=== PATIENT | female | born 1985 | race Caucasian/White ===

== ENCOUNTER 2016-08-22 03:41 | Inpatient (IN) | payer BC ==
[~2016-08-22 03:41] MED LIST: Lactated Ringers 1,000 ML IV SCH; Lidocaine 1% 50 ML MDV INJECT PRN; Oxytocin/Lactated Ringers 30 UNIT/500 ML BAG IV SCH
[2016-08-22] MEDS ORDERED: Oxytocin/Lactated Ringers 30 UNIT/500 ML BAG ONE (03:48)
[2016-08-22] MEDS ORDERED: Butorphanol 1 MG/ML SDV IVPUSH PRN (03:56)
[2016-08-22] MEDS ORDERED: Nalbuphine 10 MG/1 ML Vial IVPUSH PRN (03:56)
[2016-08-22] MEDS ORDERED: Methylergonovine 0.2 MG/1 ML Amp IM PRN (03:56)
[2016-08-22] MEDS ORDERED: Carboprost Tromethamine 250 MCG/1 ML Amp IM PRN (03:56)
[2016-08-22] MEDS ORDERED: Misoprostol 200 MCG Tab PO PRN (03:56)
[2016-08-22] MEDS ORDERED: Water For Irrigation,Sterile 1,000 ML Container IRR PRN (03:56)
[2016-08-22] MEDS ORDERED: Sodium Chloride 0.9% 2.5 ML Syringe FLUSH PRN (03:56)
[2016-08-22] MEDS ORDERED: Sodium Chloride 0.9% 10 ML Syringe FLUSH PRN (03:56)
[2016-08-22] MEDS ORDERED: Benzocaine/Menthol 20%-0.5% Spray 78 GM Cannister TOP PRN (04:51)
[2016-08-22] MEDS ORDERED: Lanolin 100% Cream 7 GM Tube TOP PRN (04:51)
[2016-08-22] MEDS ORDERED: Bisacodyl 10 MG Supp RECTAL PRN (04:51)
[2016-08-22] MEDS ORDERED: Docusate Sodium 100 MG Cap PO PRN (04:51)
[2016-08-22] MEDS ORDERED: Witch Hazel Medicated Pads 40/Jar TOP PRN (04:51)
[2016-08-22] MEDS ORDERED: oxyCODONE 5 MG Tab PO PRN (04:51)
[2016-08-22] MEDS: Acetaminophen 500 MG Tab PO PRN ×3 (05:59→17:16)
--- NOTE | 2016-08-22 11:39 | OR ---
SURGEON: Kassidy Jones DATE OF PROCEDURE: 08/22/2016 PRE-DELIVERY HISTORY: This is a 31-year-old, G2, P1, presented to Labor and delivery with chief complaint of painful uterine contractions. The patient was quickly assessed by nursing staff secondary to significant pain, moaning, and the patient with complaints of urge to push at the time of arrival on Labor and delivery. The patient was examined and found to be completely dilated and having a bulging bag. The patient was quickly given an IV and table was set for delivery. The patient spontaneously ruptured once being setup for delivery. The patient quickly started maternal expulsive efforts after spontaneous rupture of membranes. PREOPERATIVE DIAGNOSES: 1. Intrauterine at 40 weeks and 1 day. 2. Group B Streptococcus negative. 3. Active labor. POSTOPERATIVE DIAGNOSES: 1. Intrauterine at 40 weeks and 1 day. 2. Group B Streptococcus negative. 3. Active labor. 4. Delivered status. 5. Second-degree perineal laceration. PROCEDURE PERFORMED: 1. Spontaneous-assisted vaginal delivery. 2. Repair of midline second-degree perineal laceration. ANESTHESIA: Local. ESTIMATED BLOOD LOSS: 125 mL. FINDINGS: Viable male in vertex presentation with score of 9 and 9 at 1 and 5 minutes respectively and weight of 3190 g. Midline second-degree perineal laceration. Normal intact placenta with a 3-vessel cord. SPECIMEN REMOVED: Placenta. CONDITION: Postoperatively, the patient and tolerated the procedure well. COMPLICATIONS: None known. DESCRIPTION OF PROCEDURE: This female under no anesthesia, delivered a viable male with score of 9 and 9 at 1 and 5 minutes respectively and weight of 3190 g. Delivery was via spontaneous assisted vaginal delivery with in vertex presentation. Upon delivery of vertex, the neck was checked. There was no nuchal cord to be reduced. With gentle downward traction, the anterior shoulder was delivered followed by the body. The infant was bulb suctioned at delivery and placed directly on mom's abdomen. Cord was doubly clamped and cut and cord blood was collected and sent for analysis. After delivery of the infant, IV Pitocin was given as an uterotonic to prevent excessive maternal blood loss and help expel the placenta. With signs of placental separation, fundal massage was completed along with gentle traction on the umbilical cord, and a normal intact placenta with 3-vessel cord delivered on [facility]. After delivery of infant and placenta, the vagina, perineum, and rectum were explored. The patient had a midline second-degree perineal laceration. The patient's perineal tissue was infiltrated with local anesthetic. After testing, the patient was noted to be well anesthetized. A 3- 0 Vicryl suture was used to repair the second-degree perineal laceration in normal 3-layer fashion. Afterwards, the lower uterine segment and vagina were cleared of all clots and debris. The patient was cleansed, pads were changed. The bed was returned to functioning status. The patient and tolerated the procedure well. was in maternal arms bonding at the end of procedure and actually nursing. MITCHELL / DEANDRE /[id number] TARAN
[2016-08-22] MEDS: Ibuprofen 800 MG Tab PO PRN ×2 (13:40→20:59)
--- NOTE | 2016-08-23 07:34 | PCM.PNPP ---
- General Info Date of Service: 08/23/16 Functional Status: Reports: pain controlled, tolerating diet, ambulating, urinating - Review of Systems General: Denies: fever, weakness, fatigue, chills Pulmonary: Denies: shortness of breath, pleuritic chest pain, cough Cardiovascular: Denies: chest pain, palpitations, dyspnea on exertion, lightheadedness Gastrointestinal: Denies: Abdominal pain Genitourinary: Denies: dysuria, incontinence Neurological: Denies: headache Psychiatric: Denies: confusion, depression, mood lability - General Info Date of Service: 08/23/16 - Patient Data Vital Signs - most recent: Last Vital Signs Temp 36.7 C 08/22/16 20:00 Pulse 66 08/22/16 20:00 Resp 17 08/22/16 20:00 BP 118/57 L 08/22/16 20:00 Pulse Ox 96 08/22/16 20:00 Weight - most recent: 246 lb Lab Results - last 24 hrs: Laboratory Results - last 24 hr 08/23/16 Range/Units 04:34 Hgb 12.1 (12.0-16.0) g/dL Hct 36.0 (36.0-46.0) % Med Orders - Current: Current Medications Acetaminophen (Tylenol Extra Strength) 500 mg PO Q4H PRN PRN Reason: Pain Last Admin: 08/22/16 17:16 Dose: 500 mg Benzocaine/Menthol (Dermoplast Pain Relief 20%-0.5% [place]) 78 gm TOP ASDIRECTED PRN PRN Reason: Perineal Comfort Measure Last Admin: 08/22/16 05:56 Dose: 1 canister Bisacodyl (Dulcolax) 10 mg RECTAL .ONCE PRN PRN Reason: Constipation Butorphanol Tartrate (Stadol) 1 mg IVPUSH Q1H PRN PRN Reason: Pain Carboprost Tromethamine (Hemabate Ds) 250 mcg IM ASDIRECTED PRN PRN Reason: Post Hemorrhage Docusate Sodium (Colace) 100 mg PO BID PRN PRN Reason: Constipation Emollient Ointment (Lansinoh Hpa) 0 gm TOP ASDIRECTED PRN PRN Reason: Sore Nipples Last Admin: 08/22/16 05:57 Dose: 1 applic Lactated Ringer's (Ringers, Lactated) 1,000 mls @ 150 mls/hr IV ASDIRECTED VINNIE Ibuprofen (Motrin) 800 mg PO Q6H PRN PRN Reason: Pain Last Admin: 08/22/16 20:59 Dose: 800 mg Lidocaine HCl (Xylocaine 1%) 50 ml INJECT .ONCE PRN PRN Reason: Laceration repair Last Admin: 08/22/16 04:14 Dose: 50 ml Methylergonovine Maleate (Methergine) 0.2 mg IM ASDIRECTED PRN PRN Reason: Post Hemorrhage Misoprostol (Cytotec) 200 mcg PO .ONCE PRN PRN Reason: Post Hemorrhage Oxycodone HCl (Oxycodone) 5 mg PO Q2H PRN PRN Reason: Pain Sodium Chloride (Saline Flush) 10 ml FLUSH ASDIRECTED PRN PRN Reason: Keep Vein Open Sodium Chloride (Saline Flush) 2.5 ml FLUSH ASDIRECTED PRN PRN Reason: Keep Vein Open Sterile Water (Sterile Water For Irrigation) 1,000 ml IRR ASDIRECTED PRN PRN Reason: delivery Last Admin: 08/22/16 04:14 Dose: 1,000 ml Witch Tonya (Tucks) 1 pad TOP ASDIRECTED PRN PRN Reason: comfort care Last Admin: 08/22/16 05:57 Dose: 1 applic Discontinued Medications Oxytocin/Lactated Ringer's (Pitocin In Lr 30 Units/500 Ml) Confirm Administered Dose 30 unit in 500 mls @ as directed .ROUTE .STK-MED ONE Stop: 08/22/16 03:49 Last Admin: 08/22/16 13:54 Dose: Not Given Oxytocin/Lactated Ringer's (Pitocin In Lr 30 Units/500 Ml) 30 unit in 500 mls @ 500 mls/hr IV TITRATE VINNIE PRN Reason: 500 MUNITS/MIN Stop: 08/22/16 04:39 Last Admin: 08/22/16 03:49 Dose: 500 munits/min, 500 mls/hr Nalbuphine HCl (Nubain) 10 mg IVPUSH Q1H PRN PRN Reason: Pain (severe 7-10) Stop: 08/22/16 05:57 - Interaction Infant Disposition, : in Room with Family Interaction: Holding Feeding: Breastfed Infant; Nursed Well, Continues to Breastfeed Support Person: - Recovery Exam Fundal Tone: Firm Fundal Level: 1 Fingerbreadths Below Umbilicus Fundal Placement: Midline Lochia Amount: Scant Lochia Color: Rubra/Red Perineum Description: Intact, Minimal Bruising/Swelling Episiotomy/Laceration: Approximated Bladder Status: Voiding Urinary Elimination: Voided - Exam General: alert, oriented HEENT: Pupils equal Neck: supple Lungs: Clear to auscultation, Normal respiratory effort Cardiovascular: regular rate, regular rhythm Abdomen: bowel sounds present, soft, no tenderness, no distension Extremities: no calf tenderness, edema Skin: warm Psy/Mental Status: alert, normal affect, normal mood - Problem List & Annotations (1) Vaginal delivery SNOMED Code(s): 817241163 Code(s): O80 - ENCOUNTER FOR FULL-TERM UNCOMPLICATED DELIVERY Status: Acute Current Visit: No - Problem List Review Problem List Initiated/Reviewed/Updated: Yes - Assessment Assessment:: PPD#1 s/p , stable and afebrile No concerns. Clinically stable for discharge today - Plan Plan:: Discharge instructions reviewed Nothing in the vagina for 6 weeks Bleeding and infection precautions reviewed OTC pain meds Continue PNV Follow up in 6 weeks
[2016-08-23 09:17] VITALS: BP 113/62
[2016-08-23] MEDS: Ibuprofen 800 MG Tab PO PRN (10:17)
== END 2016-08-23 11:47 | disposition home or self-care (01) | DRG 560 ==
LOC: MW.OBCHECK 03:41 → MW.OB 03:45 → MW.OBCHECK 03:46 → OBSVTOIN 03:49 → MW.OB 03:49
PROVIDERS: ADMIT Obstetrics & Gynecology; ATTEND Obstetrics & Gynecology
PROC: 10E0XZZ Delivery of Products of Conception, External Approach (ICD-10-PCS; principal; 2016-08-22)
PROC: 0KQM0ZZ Repair Perineum Muscle, Open Approach (ICD-10-PCS; 2016-08-22)
DX: O70.1 Second degree perineal laceration during delivery (principal); Z3A.40 40 weeks gestation of pregnancy; Z37.0 Single live birth
CPT/HCPCS: 36415; 85014; 85018; 85027; 86850; 86900; 86901; A9270-GY